=== PATIENT | male | born 1985 | race Caucasian/White ===

== ENCOUNTER → 2021-06-06 08:35 | Outpatient (CLI) | payer BC, SELFPAY ==
[2021-06-06 21:06] LABS: SARS-CoV-2 RNA PCR Negative
== END ==
PROVIDERS: Visit Provider Nurse Practitioner
DX: R68.89 Other general symptoms and signs (principal); Z20.822 Contact with and (suspected) exposure to COVID-19
CPT/HCPCS: C9803; U0003; U0005

== ENCOUNTER 2022-12-30 11:59 | Outpatient (CLI) | payer BC, SELFPAY ==
--- NOTE | ~2022-12-30 | US_ITS ---
EXAMINATION: US soft tissue groin LT DATE: 12/30/2022 12:49 INDICATION: Left inguinal pain concerning for incarcerated hernia TECHNIQUE: Multiple grayscale and Doppler ultrasound images of the left groin were obtained. COMPARISON: None FINDINGS: There is a fat-containing left inguinal hernia extending 6 cm in length and measuring 2.0 x 0.9 cm in orthogonal dimensions. Small linear echogenic and shadowing vasectomy clip is seen distal to the ing uinal hernia and proximal to the base of the scrotum. Visualized portion of the left testis appears n ormal. IMPRESSION: 1. Vasectomy clip along the left spermatic cord distal to a small fat-containing left inguinal hernia . Reviewed, dictated and finalized at location A. IMPRESSION: 1. Vasectomy clip along the left spermatic cord distal to a small fat-containin g left inguinal hernia.
== END 2022-12-30 12:00 | disposition home or self-care (01) ==
PROVIDERS: PCP Internal Medicine; Visit Provider Nurse Practitioner
DX: R10.32 Left lower quadrant pain (principal); K40.90 Unilateral inguinal hernia, without obstruction or gangrene, not specified as recurrent
CPT/HCPCS: 76882

== ENCOUNTER → 2023-06-16 13:41 | Outpatient (CLI) | payer BC, SELFPAY ==
--- NOTE | ~2023-06-16 | US_ITS ---
EXAMINATION: US scrotum doppler DATE: 06/16/2023 14:03 INDICATION: Hydrocele TECHNIQUE: Testicular sonogram utilizing grayscale and Doppler COMPARISON: None. FINDINGS: The right testis measures 4.1 x 2.5 x 2.5 cm. The left testis measures 3.9 x 2.8 x 2.5 cm. Symmetric normal grayscale appearance to both testes. There is normal vascular flow to both testes. The right e pididymis is normal with normal vascular flow. The left epididymis is normal with normal vascular sohail w. There is no varicocele. Small left hydrocele. IMPRESSION: 1. Small left hydrocele. Otherwise normal scrotal ultrasound. Reviewed, dictated and finalized at location A. [employer]
== END ==
PROVIDERS: PCP Internal Medicine
DX: N43.3 Hydrocele, unspecified (principal)
CPT/HCPCS: 76870; 93976